=== PATIENT | male | born 1935 | race Caucasian/White ===

== ENCOUNTER 2017-08-10 14:45 | Inpatient (IN) ==
[2017-08-11] MEDS ORDERED: Nitroglycerin 0.4 MG TAB.SUBL SL PRN (17:41)
[2017-08-11] MEDS ORDERED: *HR* Dextrose 50 % in Water (Syg) 50 ML SYRINGE IVP PRN (17:49)
[2017-08-11] MEDS ORDERED: Dextrose Gel 15 GM/37.5 ML TUBE PO PRN ×2 (17:49)
[2017-08-11] MEDS ORDERED: D5% in Water 1,000 ML IVC PRN (17:49)
[2017-08-11] MEDS ORDERED: NON-FORMULARY MEDICATION 1 EACH EACH (Insulin Glargine [Lantus] 20 UNIT) SQ SCH (21:00)
[2017-08-11] MEDS: Insulin DETEMIR 100 UNIT/ML X5UNITS SQ SCH (22:45)
[2017-08-11] MEDS: Insulin LISPRO 300 UNITS/3 ML VIAL SQ SCH (22:45)
[2017-08-11] MEDS: Sennosides 8.6 MG TABLET PO SCH (22:45)
[2017-08-12 07:35] LABS: Basophils # 0.1 K/mcL (0.0-0.2); Basophils % 0.5 %; Eosinophils # 0.3 K/mcL (0.0-0.6); Eosinophils % 2.4 %; Hematocrit 40.9 % (37.5-50.1); Hemoglobin 13.7 g/dL (12.9-16.9); Immature Granulocytes % 1.3 % (0-4); Lymphocytes # 2.3 K/mcL (0.6-4.6); Lymphocytes % 21.7 %; Mean Corpuscular HGB Conc 33.5 g/dL (31.6-35.5); Mean Corpuscular Hemoglobin 33.6 pg (28.0-33.3); Mean Corpuscular Volume 100.2 fL (83.0-100.0); Monocytes # 1.1 K/mcL (0.0-1.3); Monocytes % 10.2 %; Neutrophils # 6.6 K/mcL (1.6-8.9); Platelet Count 223 K/mcL (140-400); Red Blood Count 4.08 M/mcL (4.19-5.50); Red Cell Distribution Width 12.7 % (11.5-14.5); Segmented Neutrophils % 63.9 %
[2017-08-12 07:53] LABS: BUN/Creatinine Ratio 16 (6-26); Blood Urea Nitrogen 15 mg/dL (8-23); Calcium 9.5 mg/dL (8.6-10.3); Carbon Dioxide 26 mEq/L (23-29); Chloride 114 mEq/L (98-107); Glucose 95 mg/dL (70-105); Osmolality,Calculated 299 (280-300); Sodium 144 mEq/L (136-145); eGFR For African Americans > 60 (> 60); eGFR For Non-African Americans > 60 (> 60)
[2017-08-12] MEDS: Insulin LISPRO 300 UNITS/3 ML VIAL SQ SCH ×4 (08:08→20:48)
[2017-08-12] MEDS: Cyanocobalamin (B-12) 1,000 MCG TABLET PO SCH (08:41)
[2017-08-12] MEDS: Aspirin Enteric Coated 325 MG Tablet PO SCH (08:41)
[2017-08-12] MEDS: Ascorbic Acid 500 MG TABLET PO SCH (08:41)
[2017-08-12] MEDS: Isosorbide MONOnitrate (24 HR) 30 MG TAB.ER.24H PO SCH (08:41)
[2017-08-12] MEDS: Cholecalciferol (D-3) 1,000 UNIT TABLET PO SCH (08:41)
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
[2017-08-12] MEDS: Sennosides 8.6 MG TABLET PO SCH (20:45)
[2017-08-12] MEDS: Insulin DETEMIR 100 UNIT/ML X5UNITS SQ SCH (20:46)
[2017-08-13] MEDS: Insulin LISPRO 300 UNITS/3 ML VIAL SQ SCH ×4 (07:52→20:59)
[2017-08-13] MEDS: Isosorbide MONOnitrate (24 HR) 30 MG TAB.ER.24H PO SCH (08:27)
[2017-08-13] MEDS: Aspirin Enteric Coated 325 MG Tablet PO SCH (08:27)
[2017-08-13] MEDS: Ascorbic Acid 500 MG TABLET PO SCH (08:28)
[2017-08-13] MEDS: Cholecalciferol (D-3) 1,000 UNIT TABLET PO SCH (08:28)
[2017-08-13] MEDS: Cyanocobalamin (B-12) 1,000 MCG TABLET PO SCH (08:28)
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
[2017-08-13] MEDS: Acetaminophen 325 MG TABLET PO PRN ×2 (14:54→21:00)
[2017-08-13] MEDS: Insulin DETEMIR 100 UNIT/ML X5UNITS SQ SCH (20:59)
[2017-08-13] MEDS: Sennosides 8.6 MG TABLET PO SCH (21:00)
[2017-08-14] MEDS: Insulin LISPRO 300 UNITS/3 ML VIAL SQ SCH ×4 (07:52→20:50)
[2017-08-14] MEDS: Cholecalciferol (D-3) 1,000 UNIT TABLET PO SCH (07:57)
[2017-08-14] MEDS: Isosorbide MONOnitrate (24 HR) 30 MG TAB.ER.24H PO SCH (07:57)
[2017-08-14] MEDS: Cyanocobalamin (B-12) 1,000 MCG TABLET PO SCH (07:57)
[2017-08-14] MEDS: Ascorbic Acid 500 MG TABLET PO SCH (07:57)
[2017-08-14] MEDS: Aspirin Enteric Coated 325 MG Tablet PO SCH (07:57)
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
[2017-08-14] MEDS: Melatonin 3 MG TABLET PO PRN (20:51)
[2017-08-14] MEDS: Sennosides 8.6 MG TABLET PO SCH (20:51)
[2017-08-14] MEDS: Insulin DETEMIR 100 UNIT/ML X5UNITS SQ SCH (20:52)
[2017-08-15] MEDS: Insulin LISPRO 300 UNITS/3 ML VIAL SQ SCH ×4 (08:02→21:58)
[2017-08-15] MEDS: Cholecalciferol (D-3) 1,000 UNIT TABLET PO SCH (08:09)
[2017-08-15] MEDS: Cyanocobalamin (B-12) 1,000 MCG TABLET PO SCH (08:09)
[2017-08-15] MEDS: Ascorbic Acid 500 MG TABLET PO SCH (08:09)
[2017-08-15] MEDS: Aspirin Enteric Coated 325 MG Tablet PO SCH (08:09)
[2017-08-15] MEDS: Isosorbide MONOnitrate (24 HR) 30 MG TAB.ER.24H PO SCH (08:09)
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
[2017-08-15] MEDS: Sennosides 8.6 MG TABLET PO SCH (21:56)
[2017-08-15] MEDS: Insulin DETEMIR 100 UNIT/ML X5UNITS SQ SCH (21:59)
[2017-08-16] MEDS: Cyanocobalamin (B-12) 1,000 MCG TABLET PO SCH (08:46)
[2017-08-16] MEDS: Cholecalciferol (D-3) 1,000 UNIT TABLET PO SCH (08:46)
[2017-08-16] MEDS: Ascorbic Acid 500 MG TABLET PO SCH (08:46)
[2017-08-16] MEDS: Aspirin Enteric Coated 325 MG Tablet PO SCH (08:47)
[2017-08-16] MEDS: Insulin LISPRO 300 UNITS/3 ML VIAL SQ SCH ×4 (08:47→20:36)
[2017-08-16] MEDS: Isosorbide MONOnitrate (24 HR) 30 MG TAB.ER.24H PO SCH (08:47)
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
[2017-08-16] MEDS: Insulin DETEMIR 100 UNIT/ML X5UNITS SQ SCH (20:36)
[2017-08-16] MEDS: Sennosides 8.6 MG TABLET PO SCH (20:38)
[2017-08-17] MEDS: Insulin LISPRO 300 UNITS/3 ML VIAL SQ SCH ×4 (08:26→21:06)
[2017-08-17] MEDS: Cyanocobalamin (B-12) 1,000 MCG TABLET PO SCH (08:27)
[2017-08-17] MEDS: Aspirin Enteric Coated 325 MG Tablet PO SCH (08:27)
[2017-08-17] MEDS: Isosorbide MONOnitrate (24 HR) 30 MG TAB.ER.24H PO SCH (08:27)
[2017-08-17] MEDS: Cholecalciferol (D-3) 1,000 UNIT TABLET PO SCH (08:28)
[2017-08-17] MEDS: Ascorbic Acid 500 MG TABLET PO SCH (08:28)
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
[2017-08-17] MEDS: Sennosides 8.6 MG TABLET PO SCH (21:03)
[2017-08-17] MEDS: Insulin DETEMIR 100 UNIT/ML X5UNITS SQ SCH (21:04)
[2017-08-18] MEDS: Isosorbide MONOnitrate (24 HR) 30 MG TAB.ER.24H PO SCH (08:15)
[2017-08-18] MEDS: Ascorbic Acid 500 MG TABLET PO SCH (08:15)
[2017-08-18] MEDS: Cyanocobalamin (B-12) 1,000 MCG TABLET PO SCH (08:15)
[2017-08-18] MEDS: Cholecalciferol (D-3) 1,000 UNIT TABLET PO SCH (08:15)
[2017-08-18] MEDS: Aspirin Enteric Coated 325 MG Tablet PO SCH (08:15)
[2017-08-18] MEDS: Insulin LISPRO 300 UNITS/3 ML VIAL SQ SCH ×4 (08:15→22:32)
--- NOTE | 2017-08-18 11:42 | Internal Med Progress Note ---
Date of Encounter: 08/18/17 Time of Encounter: 11:40 - Assessment and plan (1) Subdural hematoma Current Visit: Yes Status: Acute Assessment and plan: No acute issues. Patient's neurological exam appears unchanged. Patient continues to have slight confusion at times. Progressing well with physical therapy. Continue with current plan of care and medications. (2) Diabetes Current Visit: Yes Status: Chronic Assessment and plan: No acute issues. Patient's glucoses been fairly well-controlled with most readings at 150-200. We will continue with SSI and long-acting coverage. Qualifiers: Diabetes mellitus type: type 2 Diabetes mellitus manager long term care insulin use: unspecified manager long term care insulin use status Diabetes mellitus complication status : with unspecified complications Qualified Code(s): E11.8 - Type 2 diabetes mellitus with unspecified complications (3) Atrial fibrillation Current Visit: Yes Status: Acute Assessment and plan: No acute issues. Patient denies any chest discomforts or palpitations. Patient 's pulse is less than 100. Will continue on current medications. Qualifiers: Atrial fibrillation type: chronic Qualified Code(s): I48.2 - Chronic atrial fibrillation (4) CAD (coronary artery disease) Current Visit: Yes Status: Chronic Assessment and plan: No acute issues. Patient currently denies any discomforts or shortness of breath. Vital signs stable. We will continue on current medications. Qualifiers: Coronary Disease-Associated Artery/Lesion type: [place] artery [place] vs. transplanted heart: [place] heart Associated angina: without angina Qualified Code(s): I25.10 - Atherosclerotic heart disease of [place] coronary artery without angina pectoris - Time Spent With Patient less than 15 minutes - Subjective Interval history: Patient appears relaxed and denies any current discomforts or shortness of breath. Patient denies any acute neurological changes question. States that physical therapy has been going well - Constitutional Vitals: Temp Pulse Resp BP Pulse Ox 97.8 F 70 16 162/92 96 08/18/17 07:45 08/18/17 07:45 08/18/17 07:45 08/18/17 07:45 08/18/17 07:45 General appearance: Present: A&O X 3, pleasant, no acute distress, obese, answers questions appropriately - Head Head exam: Present: atraumatic, normocephalic - Eye Eye exam: Present: PERRL, conjuntiva pink, sclera anicteric Pupils: Present: PERRL - Neck Neck exam general surgery: Present: supple, trachea midline. Absent: lymphadenopathy - Respiratory Respiratory exam: Present: CTAB. Absent: accessory muscle use, rales, rhonchi, wheezes - Cardiovascular Cardiovascular exam: Present: RRR, +S1, +S2. Absent: diastolic murmur, gallop, rubs, systolic murmur - GI/Abdominal GI/Abdominal exam: Present: normal bowel sounds, soft, no peritoneal signs. Absent: distended, tenderness - Extremities Exam Extremities exam: Present: warm, radial pulses palpable and symmetrical. Absent : calf tenderness, cyanotic, pedal edema - Neurological Exam Neurological exam: Present: CN II-XII intact, oriented X3, no focal deficits. Absent: pronater drift, facial droop, speech deficit Additional comments: No focal deficits noted. Continues with slight confusion at times. Conversation appropriate. - Skin Skin exam: Present: dry, intact Internal Medicine: Result - Labs CBC & Chem 7: 08/12/17 06:30 08/12/17 06:30 - VTE Documentation of Mechanical Device: Graduated compression elastic hosiery Consult Discharge Plan - Plan Referrals: Thomas Aguilar MD [Primary Care Provider] -
[2017-08-18] MEDS: Sennosides 8.6 MG TABLET PO SCH (22:33)
[2017-08-18] MEDS: Melatonin 3 MG TABLET PO PRN (22:33)
[2017-08-18] MEDS: Insulin DETEMIR 100 UNIT/ML X5UNITS SQ SCH (22:33)
[2017-08-18] MEDS: Acetaminophen 325 MG TABLET PO PRN (22:33)
[2017-08-19] MEDS: Cyanocobalamin (B-12) 1,000 MCG TABLET PO SCH (08:04)
[2017-08-19] MEDS: Cholecalciferol (D-3) 1,000 UNIT TABLET PO SCH (08:04)
[2017-08-19] MEDS: Aspirin Enteric Coated 325 MG Tablet PO SCH (08:04)
[2017-08-19] MEDS: Isosorbide MONOnitrate (24 HR) 30 MG TAB.ER.24H PO SCH (08:04)
[2017-08-19] MEDS: Ascorbic Acid 500 MG TABLET PO SCH (08:05)
[2017-08-19] MEDS: Insulin LISPRO 300 UNITS/3 ML VIAL SQ SCH ×4 (08:13→22:31)
--- NOTE | 2017-08-19 10:26 | Internal Med Progress Note ---
Date of Encounter: 08/19/17 Time of Encounter: 10:22 - Assessment and plan (1) Subdural hematoma Current Visit: Yes Status: Acute Assessment and plan: No acute issues. Patient's neurological exam appears unchanged. Patient continues to have slight confusion at times. Progressing well with physical therapy. Continue with current plan of care and medications. (2) Diabetes Current Visit: Yes Status: Chronic Assessment and plan: No acute issues. Patient's glucoses been fairly well-controlled with most readings at 150-200. We will continue with SSI and long-acting coverage. Qualifiers: Diabetes mellitus type: type 2 Diabetes mellitus long term care social worker insulin use: unspecified long term care social worker insulin use status Diabetes mellitus complication status : with unspecified complications Qualified Code(s): E11.8 - Type 2 diabetes mellitus with unspecified complications (3) Atrial fibrillation Current Visit: Yes Status: Acute Assessment and plan: No acute issues. Patient denies any chest discomforts or palpitations. Patient 's pulse is less than 100. Will continue on current medications. Qualifiers: Atrial fibrillation type: chronic Qualified Code(s): I48.2 - Chronic atrial fibrillation (4) CAD (coronary artery disease) Current Visit: Yes Status: Chronic Assessment and plan: No acute issues. Patient currently denies any discomforts, palpitations or shortness of breath. Vital signs stable. We will continue on current medications. Qualifiers: Coronary Disease-Associated Artery/Lesion type: [place] artery [place] vs. transplanted heart: [place] heart Associated angina: without angina Qualified Code(s): I25.10 - Atherosclerotic heart disease of [place] coronary artery without angina pectoris (5) Low back pain Current Visit: Yes Status: Chronic Assessment and plan: Patient with complaints of increased low back pain overnight, which she describes as a dull ache. Patient states that his pain increases during mobilization. Patient with long history of lumbar disc disease and will start on Zanaflex when necessary and continue with current pain medication Qualifiers: Chronicity: chronic Back pain laterality: bilateral Sciatica presence: without sciatica Qualified Code(s): M54.5 - Low back pain; G89.29 - Other chronic pain; G89.29 - Other chronic pain - Time Spent With Patient less than 15 minutes - Subjective Interval history: Patient appears relaxed, but complaints of moderate low back pain. Patient states that he has a history of low back pain and that his pain flared up during the night and he had difficulty sleeping throughout the night.. Patient denies any acute neurological changes question. States that physical therapy has been going well - Constitutional Vitals: Temp Pulse Resp BP Pulse Ox 97.7 F 70 17 175/95 98 08/19/17 08:26 08/19/17 08:26 08/19/17 08:26 08/19/17 08:26 08/19/17 08:26 General appearance: Present: A&O X 3, pleasant, no acute distress, obese, answers questions appropriately - Head Head exam: Present: atraumatic, normocephalic - Eye Eye exam: Present: PERRL, conjuntiva pink, sclera anicteric Pupils: Present: PERRL - Neck Neck exam general surgery: Present: supple, trachea midline. Absent: lymphadenopathy - Respiratory Respiratory exam: Present: CTAB. Absent: accessory muscle use, rales, rhonchi, wheezes - Cardiovascular Cardiovascular exam: Present: RRR, +S1, +S2. Absent: diastolic murmur, gallop, rubs, systolic murmur - GI/Abdominal GI/Abdominal exam: Present: normal bowel sounds, soft, no peritoneal signs. Absent: distended, tenderness - Extremities Exam Extremities exam: Present: warm, radial pulses palpable and symmetrical. Absent : calf tenderness, cyanotic, pedal edema - Neurological Exam Neurological exam: Present: CN II-XII intact, oriented X3, no focal deficits. Absent: pronater drift, facial droop, speech deficit Additional comments: Patient's back was visualized with spine showing no deformity and palpated with no tenderness or step-offs noted - Skin Skin exam: Present: dry, intact Internal Medicine: Result - Labs CBC & Chem 7: 08/12/17 06:30 08/12/17 06:30 - VTE Documentation of Mechanical Device: Graduated compression elastic hosiery Consult Discharge Plan - Plan Referrals: Thomas Aguilar MD [Primary Care Provider] -
[2017-08-19] MEDS: Insulin DETEMIR 100 UNIT/ML X5UNITS SQ SCH (20:01)
[2017-08-19] MEDS: Sennosides 8.6 MG TABLET PO SCH (20:01)
[2017-08-20 05:40] LABS: Hematocrit 40.2 % (37.5-50.1); Hemoglobin 13.6 g/dL (12.9-16.9); Mean Corpuscular HGB Conc 33.8 g/dL (31.6-35.5); Mean Corpuscular Hemoglobin 33.3 pg (28.0-33.3); Mean Corpuscular Volume 98.5 fL (83.0-100.0); Mean Platelet Volume 10.1 fL (9.4-12.4); Platelet Count 252 K/mcL (140-400); Red Blood Count 4.08 M/mcL (4.19-5.50); Red Cell Distribution Width 12.9 % (11.5-14.5)
[2017-08-20 05:59] LABS: Alanine Aminotransferase 13 Units/L (7-52); Albumin 3.4 g/dL (3.5-5.7); Albumin/Globulin Ratio 1.9 (1.1-2.2); Alkaline Phosphatase 62 Units/L (34-104); Aspartate Amino Transferase 15 Units/L (13-39); BUN/Creatinine Ratio 10 (6-26); Bilirubin,Total 0.4 mg/dL (0.3-1.0); Blood Urea Nitrogen 11 mg/dL (8-23); Calcium 9.5 mg/dL (8.6-10.3); Carbon Dioxide 29 mEq/L (23-29); Chloride 109 mEq/L (98-107); Globulin 1.8 g/dL (2.4-3.5); Glucose 81 mg/dL (70-105); Magnesium 1.9 mg/dL (1.6-2.6); Osmolality,Calculated 292 (280-300); Potassium 3.7 mEq/L (3.5-5.1); Sodium 142 mEq/L (136-145); Total Protein 5.2 g/dL (6.4-8.9); eGFR For African Americans > 60 (> 60); eGFR For Non-African Americans > 60 (> 60)
[2017-08-20] MEDS: Insulin LISPRO 300 UNITS/3 ML VIAL SQ SCH ×4 (08:11→21:22)
[2017-08-20] MEDS: Cholecalciferol (D-3) 1,000 UNIT TABLET PO SCH (08:51)
[2017-08-20] MEDS: Isosorbide MONOnitrate (24 HR) 30 MG TAB.ER.24H PO SCH (08:51)
[2017-08-20] MEDS: Aspirin Enteric Coated 325 MG Tablet PO SCH (08:51)
[2017-08-20] MEDS: Ascorbic Acid 500 MG TABLET PO SCH (08:51)
[2017-08-20] MEDS: Cyanocobalamin (B-12) 1,000 MCG TABLET PO SCH (08:51)
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
[2017-08-20] MEDS: Sennosides 8.6 MG TABLET PO SCH (19:44)
[2017-08-20] MEDS: Insulin DETEMIR 100 UNIT/ML X5UNITS SQ SCH (21:22)
[2017-08-21] MEDS: Insulin LISPRO 300 UNITS/3 ML VIAL SQ SCH ×4 (07:49→21:27)
[2017-08-21] MEDS: Ascorbic Acid 500 MG TABLET PO SCH (07:52)
[2017-08-21] MEDS: Isosorbide MONOnitrate (24 HR) 30 MG TAB.ER.24H PO SCH (07:52)
[2017-08-21] MEDS: Cyanocobalamin (B-12) 1,000 MCG TABLET PO SCH (07:53)
[2017-08-21] MEDS: Aspirin Enteric Coated 325 MG Tablet PO SCH (07:53)
[2017-08-21] MEDS: Cholecalciferol (D-3) 1,000 UNIT TABLET PO SCH (07:53)
[2017-08-21] MEDS: Sennosides 8.6 MG TABLET PO SCH (19:52)
[2017-08-21] MEDS: Insulin DETEMIR 100 UNIT/ML X5UNITS SQ SCH (21:26)
[2017-08-22] MEDS: Cyanocobalamin (B-12) 1,000 MCG TABLET PO SCH (07:34)
[2017-08-22] MEDS: Isosorbide MONOnitrate (24 HR) 30 MG TAB.ER.24H PO SCH (07:34)
[2017-08-22] MEDS: Aspirin Enteric Coated 325 MG Tablet PO SCH (07:35)
[2017-08-22] MEDS: Insulin LISPRO 300 UNITS/3 ML VIAL SQ SCH ×4 (07:35→21:08)
[2017-08-22] MEDS: Ascorbic Acid 500 MG TABLET PO SCH (07:35)
[2017-08-22 07:41] LABS: Basophils # 0.1 K/mcL (0.0-0.2); Basophils % 0.6 %; Eosinophils # 0.2 K/mcL (0.0-0.6); Eosinophils % 1.7 %; Hemoglobin 15.6 g/dL (12.9-16.9); Immature Granulocytes % 0.4 % (0-4); Lymphocytes # 2.1 K/mcL (0.6-4.6); Lymphocytes % 22.6 %; Mean Corpuscular HGB Conc 33.2 g/dL (31.6-35.5); Mean Corpuscular Volume 99.4 fL (83.0-100.0); Mean Platelet Volume 9.9 fL (9.4-12.4); Monocytes # 0.7 K/mcL (0.0-1.3); Monocytes % 7.3 %; Neutrophils # 6.3 K/mcL (1.6-8.9); Platelet Count 259 K/mcL (140-400); Red Blood Count 4.73 M/mcL (4.19-5.50); Red Cell Distribution Width 13.1 % (11.5-14.5); Segmented Neutrophils % 67.4 %
[2017-08-22] MEDS: Cholecalciferol (D-3) 1,000 UNIT TABLET PO SCH (07:52)
--- NOTE | 2017-08-22 10:50 | Internal Med Progress Note ---
Date of Encounter: 08/22/17 Time of Encounter: 10:48 - Assessment and plan (1) Subdural hematoma Current Visit: Yes Status: Acute Assessment and plan: No acute issues. Patient's neurological exam appears unchanged. Progressing well with physical therapy. Continue with current plan of care and medications. (2) Diabetes Current Visit: Yes Status: Chronic Assessment and plan: No acute issues. Patient's glucoses been fairly well-controlled with most readings at 150-200. We will continue with SSI and long-acting coverage. Qualifiers: Diabetes mellitus type: type 2 Diabetes mellitus terminal superintendent insulin use: unspecified terminal superintendent insulin use status Diabetes mellitus complication status : with unspecified complications Qualified Code(s): E11.8 - Type 2 diabetes mellitus with unspecified complications (3) Atrial fibrillation Current Visit: Yes Status: Acute Assessment and plan: No acute issues. Patient denies any chest discomforts or palpitations. Patient 's pulse is less than 100. Will continue on current medications. Qualifiers: Atrial fibrillation type: chronic Qualified Code(s): I48.2 - Chronic atrial fibrillation (4) CAD (coronary artery disease) Current Visit: Yes Status: Chronic Assessment and plan: No acute issues. Patient currently denies any discomforts, palpitations or shortness of breath. Vital signs stable. We will continue on current medications. Qualifiers: Coronary Disease-Associated Artery/Lesion type: [place] artery [place] vs. transplanted heart: [place] heart Associated angina: without angina Qualified Code(s): I25.10 - Atherosclerotic heart disease of [place] coronary artery without angina pectoris (5) Low back pain Current Visit: Yes Status: Chronic Assessment and plan: Patient with continued complaints of low back pain, which began last week. Patient states this is a chronic issue. Patient states that current medications have been effective and given him relief. We will continue with physical therapy Qualifiers: Chronicity: chronic Back pain laterality: bilateral Sciatica presence: without sciatica Qualified Code(s): M54.5 - Low back pain; G89.29 - Other chronic pain; G89.29 - Other chronic pain - Time Spent With Patient less than 15 minutes - Subjective Interval history: Patient appears relaxed, but complaints of continued low back pain. Patient states that he has a history of low back pain and that his pain flared up during the the past week. Patient states that is a chronic issue that he has gotten used to over the years. States that pain medications have been effective. Patient denies any acute neurological changes question. States that physical therapy has been going well - Constitutional Vitals: Temp Pulse Resp BP Pulse Ox 97.4 F L 70 16 174/75 97 08/22/17 07:47 08/22/17 07:47 08/22/17 07:47 08/22/17 07:47 08/22/17 07:47 General appearance: Present: A&O X 3, pleasant, answers questions appropriately - Head Head exam: Present: atraumatic, normocephalic - Eye Eye exam: Present: PERRL, conjuntiva pink, sclera anicteric Pupils: Present: PERRL - Neck Neck exam general surgery: Present: supple, trachea midline. Absent: lymphadenopathy - Respiratory Respiratory exam: Present: CTAB. Absent: accessory muscle use, rales, rhonchi, wheezes - Cardiovascular Cardiovascular exam: Present: RRR, +S1, +S2. Absent: diastolic murmur, gallop, rubs, systolic murmur - GI/Abdominal GI/Abdominal exam: Present: normal bowel sounds, soft, no peritoneal signs. Absent: distended, tenderness - Extremities Exam Extremities exam: Present: warm, radial pulses palpable and symmetrical. Absent : calf tenderness, cyanotic, pedal edema - Neurological Exam Neurological exam: Present: CN II-XII intact, oriented X3, no focal deficits. Absent: pronater drift, facial droop, speech deficit - Skin Skin exam: Present: dry, intact Internal Medicine: Result - Labs CBC & Chem 7: 08/22/17 07:00 08/20/17 05:05 Labs: Short CBC 08/22/17 Range/Units 07:00 WBC 9.3 (4.3-11.1) K/mcL Hgb 15.6 D (12.9-16.9) g/dL Hct 47.0 (37.5-50.1) % Plt Count 259 (140-400) K/mcL Neutrophils # 6.3 (1.6-8.9) K/mcL - VTE Documentation of Mechanical Device: Graduated compression elastic hosiery Consult Discharge Plan - Plan Referrals: Thomas Aguilar MD [Primary Care Provider] -
[2017-08-22 13:22] LABS: BUN/Creatinine Ratio 11 (6-26); Blood Urea Nitrogen 13 mg/dL (8-23); Carbon Dioxide 26 mEq/L (23-29); Chloride 104 mEq/L (98-107); Glucose 140 mg/dL (70-105); Osmolality,Calculated 290 (280-300); Potassium 4.1 mEq/L (3.5-5.1); Sodium 139 mEq/L (136-145); eGFR For African Americans > 60 (> 60); eGFR For Non-African Americans > 60 (> 60)
[2017-08-22] MEDS ORDERED: cloNIDine HCl 0.1 MG TABLET PO PRN (13:36)
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
[2017-08-22] MEDS: Sennosides 8.6 MG TABLET PO SCH (21:04)
[2017-08-22] MEDS: Insulin DETEMIR 100 UNIT/ML X5UNITS SQ SCH (21:05)
[2017-08-23] MEDS: Insulin LISPRO 300 UNITS/3 ML VIAL SQ SCH ×4 (07:42→21:43)
[2017-08-23] MEDS: Ascorbic Acid 500 MG TABLET PO SCH (08:30)
[2017-08-23] MEDS: Aspirin Enteric Coated 325 MG Tablet PO SCH (08:30)
[2017-08-23] MEDS: Cholecalciferol (D-3) 1,000 UNIT TABLET PO SCH (08:31)
[2017-08-23] MEDS: Cyanocobalamin (B-12) 1,000 MCG TABLET PO SCH (08:31)
[2017-08-23] MEDS: Isosorbide MONOnitrate (24 HR) 30 MG TAB.ER.24H PO SCH (08:31)
[2017-08-23] MEDS: tiZANidine 4 MG TABLET PO PRN ×2 (08:36→21:38)
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
[2017-08-23] MEDS: Sennosides 8.6 MG TABLET PO SCH (20:26)
[2017-08-23] MEDS: Melatonin 3 MG TABLET PO PRN (21:38)
[2017-08-23] MEDS: Insulin DETEMIR 100 UNIT/ML X5UNITS SQ SCH (21:40)
[2017-08-24] MEDS: Insulin LISPRO 300 UNITS/3 ML VIAL SQ SCH ×4 (07:59→20:19)
[2017-08-24] MEDS: Cholecalciferol (D-3) 1,000 UNIT TABLET PO SCH (08:34)
[2017-08-24] MEDS: Aspirin Enteric Coated 325 MG Tablet PO SCH (08:34)
[2017-08-24] MEDS: Cyanocobalamin (B-12) 1,000 MCG TABLET PO SCH (08:34)
[2017-08-24] MEDS: Ascorbic Acid 500 MG TABLET PO SCH (08:35)
[2017-08-24] MEDS: Isosorbide MONOnitrate (24 HR) 30 MG TAB.ER.24H PO SCH (08:35)
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
[2017-08-24] MEDS: Sennosides 8.6 MG TABLET PO SCH (19:18)
[2017-08-24] MEDS: Insulin DETEMIR 100 UNIT/ML X5UNITS SQ SCH (20:20)
[2017-08-24] MEDS: Melatonin 3 MG TABLET PO PRN (20:24)
[2017-08-25] MEDS: Aspirin Enteric Coated 325 MG Tablet PO SCH (08:32)
[2017-08-25] MEDS: Isosorbide MONOnitrate (24 HR) 30 MG TAB.ER.24H PO SCH (08:32)
[2017-08-25] MEDS: Cholecalciferol (D-3) 1,000 UNIT TABLET PO SCH (08:32)
[2017-08-25] MEDS: Cyanocobalamin (B-12) 1,000 MCG TABLET PO SCH (08:32)
[2017-08-25] MEDS: Ascorbic Acid 500 MG TABLET PO SCH (08:32)
[2017-08-25] MEDS: Insulin LISPRO 300 UNITS/3 ML VIAL SQ SCH ×4 (08:33→20:47)
--- NOTE | 2017-08-25 14:26 | Internal Med Progress Note ---
Date of Encounter: 08/25/17 Time of Encounter: 14:24 - Assessment and plan (1) Subdural hematoma Current Visit: Yes Status: Acute Assessment and plan: No acute issues. Patient's neurological exam appears unchanged. Progressing well with physical therapy. Continue with current plan of care and medications. (2) Diabetes Current Visit: Yes Status: Chronic Assessment and plan: No acute issues. Patient's glucoses been fairly well-controlled with most readings at 150-200. Patient has had recent increase in long-acting insulin. We will continue with SSI and long-acting coverage. Qualifiers: Diabetes mellitus type: type 2 Diabetes mellitus shelter insulin use: unspecified shelter insulin use status Diabetes mellitus complication status : with unspecified complications Qualified Code(s): E11.8 - Type 2 diabetes mellitus with unspecified complications (3) Atrial fibrillation Current Visit: Yes Status: Acute Assessment and plan: No acute issues. Patient denies any chest discomforts or palpitations. Patient 's pulse is less than 100. Will continue on current medications. Qualifiers: Atrial fibrillation type: chronic Qualified Code(s): I48.2 - Chronic atrial fibrillation (4) CAD (coronary artery disease) Current Visit: Yes Status: Chronic Assessment and plan: No acute issues. Patient currently denies any discomforts, palpitations or shortness of breath. Vital signs stable. We will continue on current medications. Qualifiers: Coronary Disease-Associated Artery/Lesion type: [place] artery [place] vs. transplanted heart: [place] heart Associated angina: without angina Qualified Code(s): I25.10 - Atherosclerotic heart disease of [place] coronary artery without angina pectoris (5) Low back pain Current Visit: Yes Status: Chronic Assessment and plan: Patient states that his low back pain has subsided somewhat. Continue with current medications. We will continue with physical therapy Qualifiers: Chronicity: chronic Back pain laterality: bilateral Sciatica presence: without sciatica Qualified Code(s): M54.5 - Low back pain; G89.29 - Other chronic pain; G89.29 - Other chronic pain - Subjective Interval history: Patient appears relaxed. Patient states that his recent issues with low back pain has subsided somewhat States that pain medications have been effective. Patient denies any acute neurological changes question. States that physical therapy has been going well - Constitutional Vitals: Temp Pulse Resp BP Pulse Ox 97.7 F 70 17 171/96 96 08/25/17 08:02 08/25/17 08:02 08/25/17 08:02 08/25/17 08:02 08/25/17 08:02 General appearance: Present: A&O X 3, pleasant, answers questions appropriately - Head Head exam: Present: atraumatic, normocephalic - Eye Eye exam: Present: PERRL, conjuntiva pink, sclera anicteric Pupils: Present: PERRL - Neck Neck exam general surgery: Present: supple, trachea midline. Absent: lymphadenopathy - Respiratory Respiratory exam: Present: CTAB. Absent: accessory muscle use, rales, rhonchi, wheezes - Cardiovascular Cardiovascular exam: Present: RRR, +S1, +S2. Absent: diastolic murmur, gallop, rubs, systolic murmur - GI/Abdominal GI/Abdominal exam: Present: normal bowel sounds, soft, no peritoneal signs. Absent: distended, tenderness - Extremities Exam Extremities exam: Present: warm, radial pulses palpable and symmetrical. Absent : calf tenderness, cyanotic, pedal edema - Neurological Exam Neurological exam: Present: CN II-XII intact, oriented X3, no focal deficits. Absent: pronater drift, facial droop, speech deficit - Skin Skin exam: Present: dry, intact Internal Medicine: Result - Labs CBC & Chem 7: 08/22/17 07:00 08/22/17 07:00 - VTE Documentation of Mechanical Device: Graduated compression elastic hosiery Consult Discharge Plan - Plan Referrals: Thomas Aguilar MD [Primary Care Provider] -
[2017-08-25] MEDS: Sennosides 8.6 MG TABLET PO SCH (20:45)
[2017-08-25] MEDS: Insulin DETEMIR 100 UNIT/ML X5UNITS SQ SCH (20:45)
[2017-08-26] MEDS: Cyanocobalamin (B-12) 1,000 MCG TABLET PO SCH (07:40)
[2017-08-26] MEDS: Cholecalciferol (D-3) 1,000 UNIT TABLET PO SCH (07:40)
[2017-08-26] MEDS: Isosorbide MONOnitrate (24 HR) 30 MG TAB.ER.24H PO SCH (07:40)
[2017-08-26] MEDS: Aspirin Enteric Coated 325 MG Tablet PO SCH (07:40)
[2017-08-26] MEDS: tiZANidine 4 MG TABLET PO PRN (07:40)
[2017-08-26] MEDS: Ascorbic Acid 500 MG TABLET PO SCH (07:40)
[2017-08-26] MEDS: Insulin LISPRO 300 UNITS/3 ML VIAL SQ SCH (07:41)
[2017-08-26 08:04] VITALS: BP 152/85
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
== END 2017-08-26 12:05 | disposition home or self-care (01) | DRG 946 ==
LOC: INPGRE 08-11 16:52
PROVIDERS: ADMIT Internal Medicine; ATTEND Internal Medicine